=== PATIENT | female | born 1940 | race Caucasian/White ===

== ENCOUNTER 2020-09-21 13:43 | Outpatient (CLI) | payer MEDICARE ==
[2020-09-22 01:16] LABS: SARS-CoV-2 PCR by NAA Not Detected (NotDetected)
== END 2020-09-21 13:44 | disposition home or self-care (01) ==
LOC: LABBT 13:43
PROVIDERS: ATTEND Internal Medicine Cardiovascular Disease
DX: Z01.812 Encounter for preprocedural laboratory examination (principal); Z20.822 Contact with and (suspected) exposure to COVID-19
CPT/HCPCS: U0003; U0005; 87635

== ENCOUNTER 2020-09-24 06:17 | Inpatient (IN) | payer MEDICARE ==
[2020-09-24] MEDS ORDERED: Fentanyl 100 MCG/2 ML VIAL ONE (07:20)
[2020-09-24] MEDS ORDERED: PROPOFOL 0 ML ONE (08:13)
[2020-09-24] MEDS ORDERED: PROPOFOL 200 MG/20 ML VIAL ONE (10:24)
[2020-09-24] MEDS ORDERED: hydrALAZINE 25 MG TAB ONE (16:15)
[2020-09-24] MEDS: hydrALAZINE 25 MG TAB PO SCH ×2 (16:18→20:54)
[2020-09-24 16:46] LABS: #Basophils 0.1 thou/uL (0.0-0.2); #Eosinphils 0.3 thou/uL (0.0-0.7); #Lymphocytes 2.4 thou/uL (1.20-3.40); #Monocytes 0.6 thou/uL (0.11-0.59); #Neutrophils 3.9 thou/uL (1.40-6.50); %Basophils 1.1 % (0.0-1.0); %Eosinophils 4.5 % (0.0-10.0); %Lymphocytes 33.2 % (21.0-51.0); %Monocytes 7.5 % (0.0-10.0); %Neutrophils 53.7 % (42.0-75.0); Mean Corpuscular HGB CONC 31.2 g/dL (32.0-36.0); Mean Corpuscular Hemoglobin 29.7 pg (27.0-31.0); Mean Corpuscular Volume 95.2 fL (78.0-98.0); Mean Platelet Volume 7.8 fL (7.4-10.4); Platelet Count 178 thou/uL (130-400); RBC Distribution Width 14.2 % (11.5-14.5); Red Blood Cell (RBC) Count 5.07 mill/uL (4.20-5.40); White Blood Cell (WBC) Count 7.3 thou/uL (4.8-10.8)
[2020-09-24 17:03] LABS: Anion Gap 10 mmol/L (10-20); BUN (Urea Nitrogen) 13 mg/dL (9.8-20.1); Calc. Creatinine Clearance 0 mL/min (70-130); Calcium 8.7 mg/dL (7.8-10.44); Carbon Dioxide 28 mmol/L (23-31); Chloride 102 mmol/L (98-107); Glucose 145 mg/dL (83-110); Potassium 4.3 mmol/L (3.5-5.1); Sodium 136 mmol/L (136-145)
[2020-09-24 19:54] VITALS: BMI 19.4
[2020-09-24] MEDS: Enoxaparin Sodium 60 MG/0.6 ML SYRINGE SC SCH (20:54)
[2020-09-24] MEDS: Lisinopril 20 MG TAB PO SCH (20:54)
[2020-09-25] MEDS: Enoxaparin Sodium 60 MG/0.6 ML SYRINGE SC SCH ×2 (09:30→20:35)
[2020-09-25] MEDS: hydrALAZINE 25 MG TAB PO SCH ×3 (09:30→20:35)
[2020-09-25] MEDS: Lisinopril 20 MG TAB PO SCH ×2 (09:30→20:35)
[2020-09-25] MEDS: Amiodarone 200 MG TAB PO SCH (09:30)
[2020-09-26] MEDS: Amiodarone 200 MG TAB PO SCH (09:48)
[2020-09-26] MEDS: hydrALAZINE 25 MG TAB PO SCH ×3 (09:48→20:55)
[2020-09-26] MEDS: Enoxaparin Sodium 60 MG/0.6 ML SYRINGE SC SCH (09:49)
[2020-09-26] MEDS: Lisinopril 20 MG TAB PO SCH ×2 (09:49→20:55)
[2020-09-26] MEDS ORDERED: Amlodipine 5 MG TAB PO SCH (11:45)
[2020-09-27] MEDS ORDERED: CEFAZOLIN 2 GM in Premix Bag 1 BAG IVPB SCH (02:15)
[2020-09-27] MEDS ORDERED: Sodium Chloride 0.9% 1,000 ML IV SCH (06:00)
[2020-09-27] MEDS ORDERED: Fentanyl 100 MCG/2 ML VIAL ONE (06:37)
[2020-09-27] MEDS ORDERED: Midazolam HCl 2 mg/2 ml Vial ONE (06:37)
[2020-09-27] MEDS ORDERED: Gentamicin 80 MG/2 ML VIAL ONE (06:37)
[2020-09-27] MEDS ORDERED: CEFAZOLIN 1 GM VIAL ONE (06:37)
[2020-09-27] MEDS ORDERED: Lidocaine 1% (PF) 30 ML VIAL ONE (07:04)
[2020-09-27] MEDS ORDERED: Vancomycin HCl 500 MG VIAL ONE (07:30)
[2020-09-27] MEDS ORDERED: Acetaminophen/Codeine 30-300mg Tablet PO PRN ×2 (08:34)
[2020-09-27] MEDS ORDERED: Iopamidol 370 76% 50 ML VIAL FS ONE (08:48)
[2020-09-27] MEDS ORDERED: Amlodipine 5 MG TAB PO SCH (09:00)
[2020-09-27] MEDS: Amiodarone 200 MG TAB PO SCH (09:18)
[2020-09-27] MEDS: Lisinopril 20 MG TAB PO SCH ×2 (09:19→20:07)
[2020-09-27] MEDS: Cephalexin 250 MG CAP PO SCH ×3 (09:23→20:07)
[2020-09-28 05:21] LABS: Anion Gap 11 mmol/L (10-20); BUN (Urea Nitrogen) 10 mg/dL (9.8-20.1); Calc. Creatinine Clearance 47 mL/min (70-130); Calcium 9.1 mg/dL (7.8-10.44); Carbon Dioxide 24 mmol/L (23-31); Chloride 105 mmol/L (98-107); Glucose 85 mg/dL (83-110); Potassium 3.3 mmol/L (3.5-5.1); Sodium 137 mmol/L (136-145)
[2020-09-28] MEDS ORDERED: Potassium Chloride 20 MEQ TAB PO SCH (08:15)
[2020-09-28 09:00] VITALS: TEMP 98.2
[2020-09-28] MEDS: Cephalexin 250 MG CAP PO SCH (09:02)
[2020-09-28] MEDS: Lisinopril 20 MG TAB PO SCH (09:02)
[2020-09-28] MEDS: Amiodarone 200 MG TAB PO SCH (09:02)
[2020-09-28 11:12] VITALS: BP 160/82
[2020-09-30] MEDS ORDERED: Apixaban 5 MG TAB PO SCH (09:00)
== END 2020-09-28 11:30 | disposition home or self-care (01) | DRG 244 ==
LOC: CCL 06:17 → 2NO 10:47
PROVIDERS: ADMIT Internal Medicine Cardiovascular Disease; ATTEND Internal Medicine Cardiovascular Disease
PROC: B24BZZ4 Ultrasonography of Heart with Aorta, Transesophageal (ICD-10-PCS; principal; 2020-09-24)
PROC: 0JH606Z Insertion of Pacemaker, Dual Chamber into Chest Subcutaneous Tissue and Fascia, Open Approach (ICD-10-PCS; 2020-09-27)
PROC: 02HK3JZ Insertion of Pacemaker Lead into Right Ventricle, Percutaneous Approach (ICD-10-PCS; 2020-09-27)
PROC: 02H63JZ Insertion of Pacemaker Lead into Right Atrium, Percutaneous Approach (ICD-10-PCS; 2020-09-27)
DX: I48.19 Other persistent atrial fibrillation (principal); Z20.822 Contact with and (suspected) exposure to COVID-19; I44.2 Atrioventricular block, complete; I10 Essential (primary) hypertension; I87.2 Venous insufficiency (chronic) (peripheral); I08.3 Combined rheumatic disorders of mitral, aortic and tricuspid valves; H35.30 Unspecified macular degeneration; L40.9 Psoriasis, unspecified; R94.31 Abnormal electrocardiogram [ECG] [EKG]; I70.0 Atherosclerosis of aorta; Z82.49 Family history of ischemic heart disease and other diseases of the circulatory system; Z86.16 Personal history of COVID-19; Z87.891 Personal history of nicotine dependence; Z79.899 Other long term (current) drug therapy; Z79.01 Long term (current) use of anticoagulants; Z98.51 Tubal ligation status; Z98.42 Cataract extraction status, left eye; Z98.41 Cataract extraction status, right eye; Z83.3 Family history of diabetes mellitus
CPT/HCPCS: 33208; 36005; 36415; 71045; 75820; 80048; 85025; 87635; 92960; 93005; 93010; 93312; 93798; 99152; 99153; C1785; C1898; J0690; J1580; J1650; J2001; J2250; J2704; J3010; J3370; Q9967; U0003; U0005

== ENCOUNTER 2021-02-15 14:35 | Inpatient (IN) | payer OTHER, MEDICARE ==
[2021-02-15 14:53] LABS: #Eosinphils 0.1 thou/uL (0.0-0.7); #Lymphocytes 1.7 thou/uL (1.20-3.40); #Monocytes 0.5 thou/uL (0.11-0.59); #Neutrophils 5.3 thou/uL (1.40-6.50); %Basophils 0.4 % (0.0-1.0); %Eosinophils 1.9 % (0.0-10.0); %Monocytes 6.9 % (0.0-10.0); %Neutrophils 68.9 % (42.0-75.0); Hemoglobin 14.8 g/dL (12.0-16.0); Mean Corpuscular HGB CONC 34.1 g/dL (32.0-36.0); Mean Corpuscular Hemoglobin 34.3 pg (27.0-31.0); Mean Platelet Volume 7.4 fL (7.4-10.4); Platelet Count 197 thou/uL (130-400); RBC Distribution Width 13.2 % (11.5-14.5); Red Blood Cell (RBC) Count 4.31 mill/uL (4.20-5.40); White Blood Cell (WBC) Count 7.6 thou/uL (4.8-10.8)
[2021-02-15] MEDS ORDERED: Succinylcholine 200 MG/10 ml SYRINGE FS ONE (15:01)
[2021-02-15] MEDS ORDERED: TETANUS AND DIPHTHERIA TOX/PF 0.5 ML DISP.SYRIN ONE (15:01)
[2021-02-15] MEDS ORDERED: ceFAZolin 2 GM/DEX 5% 100 ML BAG ONE ×2 (15:07→15:11)
[2021-02-15] MEDS ORDERED: Boostrix 0.5 ML (Tdap) VIAL ONE (15:07)
[2021-02-15] MEDS ORDERED: Fentanyl 100 MCG/2 ML VIAL ONE (15:07)
[2021-02-15 15:16] LABS: ALT (SGPT) 62 U/L (8-55); AST (SGOT) 59 U/L (5-34); Albumin 3.7 g/dL (3.4-4.8); Alkaline Phosphatase 90 U/L (40-110); Anion Gap 13 mmol/L (10-20); BUN (Urea Nitrogen) 19 mg/dL (9.8-20.1); Bilirubin, Total 1.1 mg/dL (0.2-1.2); Calc. Creatinine Clearance 0 mL/min (70-130); Calcium 8.9 mg/dL (7.8-10.44); Carbon Dioxide 27 mmol/L (23-31); Chloride 97 mmol/L (98-107); Glucose 128 mg/dL (83-110); Lipase 18 U/L (8-78); Potassium 3.6 mmol/L (3.5-5.1); Protein, Total 6.7 g/dL (5.8-8.1); Sodium 133 mmol/L (136-145)
[2021-02-15] MEDS ORDERED: Atropine Sulfate 1 mg/10 ml Syringe ONE (15:20)
[2021-02-15] MEDS ORDERED: EPINEPHrine 1 MG/10 ML Abboject SYRINGE ONE ×2 (15:20→16:58)
[2021-02-15] MEDS ORDERED: Calcium Chloride 1 GM/10 ML Abboject SYRINGE ONE (15:20)
[2021-02-15] MEDS ORDERED: Sodium Bicarb 50 MEQ/50 ML Abboject 8.4% SYRINGE ONE ×2 (15:20→23:33)
[2021-02-15] MEDS ORDERED: Ondansetron PF 4 MG/2 ML Vial IVP PRN (15:53)
[2021-02-15] MEDS ORDERED: Dextrose 5% in Water 1,000 ML IV PRN (15:53)
[2021-02-15] MEDS ORDERED: Dextrose 50% Abboject 50 ML SYRINGE SLOW IVP PRN (15:53)
[2021-02-15] MEDS ORDERED: Ondansetron ODT 4 MG TAB PO PRN (15:53)
[2021-02-15] MEDS ORDERED: Ondansetron PF 4 MG/2 ML Vial ONE ×2 (15:56→17:12)
[2021-02-15] MEDS ORDERED: Sodium Chloride 0.9% 1,000 ML IV SCH (16:15)
[2021-02-15] MEDS ORDERED: Fentanyl 100 MCG/2 ML VIAL SLOW IVP SCH (16:15)
[2021-02-15] MEDS ORDERED: CEFAZOLIN 2 GM in Premix Bag 1 BAG IVPB SCH (16:15)
[2021-02-15] MEDS ORDERED: ADMIXTURE FEE IV SCH (16:30)
[2021-02-15] MEDS ORDERED: HUMAN PROTHROMBIN COMPLX IV SCH (16:30)
[2021-02-15] MEDS ORDERED: Norepinephrine 8 MG/0.9% NS 250 ML ONE ×3 (17:00→22:59)
[2021-02-15] MEDS ORDERED: Hydrocortisone Sod Succ/PF 100 mg/2 ml Vial ONE (17:12)
[2021-02-15 17:18] LABS: INR-International Normal Ratio 1.7; Prothrombin Time 19.8 sec (12.0-14.7)
[2021-02-15 17:19] LABS: PTT 29.8 sec (22.9-36.1)
[2021-02-15] MEDS ORDERED: Fentanyl CADD 100 ML IV SCH (18:45)
[2021-02-15 19:38] LABS: Lactic Acid 10.9 mmol/L (0.5-2.2)
[2021-02-15 19:44] LABS: Hemoglobin 10.1 g/dL (12.0-16.0); Mean Corpuscular Hemoglobin 33.5 pg (27.0-31.0); Mean Platelet Volume 7.3 fL (7.4-10.4); Platelet Count 139 thou/uL (130-400); Red Blood Cell (RBC) Count 3.02 mill/uL (4.20-5.40); White Blood Cell (WBC) Count 27.4 thou/uL (4.8-10.8)
[2021-02-15 19:50] LABS: Actual Bicarbonate (HCO3a) 9.8 mEq/L (22-28); Analyzer IN Cardio ER; Base Excess (BEa) -19.3 mEq/L (-2.0 to +3.0); CO2 Tension 36.2 mmHg (35.0-45.0); Calcium, Ionized (arterial) 1.28 mmol/L (1.12-1.30); Carboxyhemoglobin (COHb) 0.2 gm% (0.0-3.0); Hemoglobin (Hb) 8.7 g/dL (12.0-16.0); O2 Tension (PaO2), arterial 296.1 mmHg (> 70.0); Potassium - ABG Lab 4.01 mmol/L (3.70-5.30)
[2021-02-15 20:00] LABS: Band 43 % (5-11); Lymphocytes 9 % (21-51); MDiff Complete? YES; Macrocytosis SLIGHT = 6-15 cells (100X) (0-5/hpf); Metamyelocyte 3 % (0-0); Monocytes 5 % (0-10); Myelocyte 2 % (0-0); Neutrophil 37 % (42-75); Platelet Morphology Comment Appears Adequate; Polychromasia SLIGHT = 2-3 cells (100X) (0-2/hpf); Reactive Lymphocytes 1 % (0-10); Reflex for Review?? NO
[2021-02-15 20:27] LABS: SARS-CoV-2 NAA Rapid Test Not Detected (NotDetected)
[2021-02-15 20:38] LABS: pH, Arterial 7.05 (7.35-7.45)
[2021-02-15 20:39] LABS: Puncture Site ALINE
[2021-02-15 20:52] LABS: Albumin 2.8 g/dL (3.4-4.8)
[2021-02-15 20:54] LABS: Calcium 8.9 mg/dL (7.8-10.44); Sodium 133 mmol/L (136-145)
[2021-02-15 20:55] LABS: Globulin 1.2 g/dL (2.4-3.5); Glucose 282 mg/dL (83-110)
[2021-02-15 20:56] LABS: Anion Gap 20 mmol/L (10-20); Chloride 109 mmol/L (98-107)
[2021-02-15 20:57] LABS: Bilirubin, Total 0.8 mg/dL (0.2-1.2)
[2021-02-15 20:58] LABS: Alkaline Phosphatase 78 U/L (40-110); Calc. Creatinine Clearance 29 mL/min (70-130)
[2021-02-15 20:59] LABS: BUN (Urea Nitrogen) 19 mg/dL (9.8-20.1)
[2021-02-15 21:00] LABS: AST (SGOT) 366 U/L (5-34)
[2021-02-15] MEDS ORDERED: Famotidine 20 MG TAB PO SCH (21:00)
[2021-02-15 21:01] LABS: ALT (SGPT) 276 U/L (8-55)
[2021-02-15 21:04] LABS: Carbon Dioxide 8 mmol/L (23-31)
[2021-02-15 21:18] LABS: CKMB 4.9 ng/mL (0-6.6)
[2021-02-15] MEDS ORDERED: EPINEPHrine 4 MG in Dextrose 5% in Water 250 ML IV SCH (22:00)
[2021-02-15 23:16] LABS: Actual Bicarbonate (HCO3a) 8.6 mEq/L (22-28); Base Excess (BEa) -19.5 mEq/L (-2.0 to +3.0); CO2 Tension 28.2 mmHg (35.0-45.0); Calcium, Ionized (arterial) 1.21 mmol/L (1.12-1.30); Carboxyhemoglobin (COHb) 0.3 gm% (0.0-3.0); Hemoglobin (Hb) 10.1 g/dL (12.0-16.0); O2 Tension (PaO2), arterial 120.8 mmHg (> 70.0); Potassium - ABG Lab 3.83 mmol/L (3.70-5.30)
[2021-02-15 23:17] LABS: Puncture Site LINE
[2021-02-15] MEDS: Hydrocortisone Sod Succ/PF 100 mg/2 ml Vial IVP SCH (23:17)
[2021-02-15] MEDS ORDERED: Sodium Bicarb 50 MEQ/50 ML Abboject 8.4% SYRINGE IVP SCH (23:30)
[2021-02-15] MEDS: Sodium Bicarb 50 MEQ/50 ML Abboject 8.4% SYRINGE ONE (23:38)
[2021-02-15] MEDS ORDERED: Sodium Bicarbonate 150 MEQ in Dextrose 5% in Water 1,000 ML IV SCH (23:59)
[2021-02-16 00:55] VITALS: BMI 20.8
[2021-02-16] MEDS ORDERED: Sodium Chloride 0.9% 250 ML IVPB SCH ×2 (01:15→01:30)
[2021-02-16] MEDS ORDERED: DOPamine 400 MG/D5W 250 ML 250 ML ONE (02:24)
[2021-02-16] MEDS ORDERED: Sodium Bicarb 50 MEQ/50 ML Abboject 8.4% SYRINGE ONE ×2 (02:40→02:46)
[2021-02-16] MEDS ORDERED: Calcium Chloride 1 GM/10 ML Abboject SYRINGE ONE (03:00)
[2021-02-16] MEDS: DOPamine 400 MG/D5W 250 ML 250 ML IVPB SCH ×2 (03:00→07:24)
[2021-02-16] MEDS: Hydrocortisone Sod Succ/PF 100 mg/2 ml Vial IVP SCH (03:04)
[2021-02-16 03:08] LABS: Actual Bicarbonate (HCO3a) 18.1 mEq/L (22-28); Analyzer IN Cardio OR; Base Excess (BEa) -6.9 mEq/L (-2.0 to +3.0); CO2 Tension 33.6 mmHg (35.0-45.0); Calcium, Ionized (arterial) 2.63 mmol/L (1.12-1.30); Carboxyhemoglobin (COHb) 0.9 gm% (0.0-3.0); O2 Tension (PaO2), arterial 100.1 mmHg (> 70.0); Potassium - ABG Lab 2.73 mmol/L (3.70-5.30); pH, Arterial 7.35 (7.35-7.45)
[2021-02-16 03:12] LABS: Puncture Site LINE
[2021-02-16 03:30] LABS: Hemoglobin 6.8 g/dL (12.0-16.0); Mean Corpuscular HGB CONC 33.7 g/dL (32.0-36.0); Mean Corpuscular Hemoglobin 32.2 pg (27.0-31.0); Mean Corpuscular Volume 95.5 fL (78.0-98.0); RBC Distribution Width 15.7 % (11.5-14.5); Red Blood Cell (RBC) Count 2.11 mill/uL (4.20-5.40); White Blood Cell (WBC) Count 19.8 thou/uL (4.8-10.8)
[2021-02-16] MEDS ORDERED: Potassium Chloride 40 MEQ in Premix Bag 1 BAG IVPB SCH (03:30)
[2021-02-16 03:38] LABS: Albumin 1.6 g/dL (3.4-4.8); Lactic Acid 21.5 mmol/L (0.5-2.2)
[2021-02-16 03:39] LABS: Calcium 7.3 mg/dL (7.8-10.44); Chloride 104 mmol/L (98-107); Sodium 147 mmol/L (136-145)
[2021-02-16 03:40] LABS: Protein, Total 2.6 g/dL (5.8-8.1)
[2021-02-16 03:41] LABS: Anion Gap 29 mmol/L (10-20); Carbon Dioxide 17 mmol/L (23-31)
[2021-02-16 03:43] LABS: Alkaline Phosphatase 71 U/L (40-110)
[2021-02-16 03:44] LABS: BUN (Urea Nitrogen) 21 mg/dL (9.8-20.1); Calc. Creatinine Clearance 27 mL/min (70-130)
[2021-02-16 03:45] LABS: AST (SGOT) 1428 U/L (5-34)
[2021-02-16 03:46] LABS: ALT (SGPT) 1296 U/L (8-55); Magnesium 1.8 mg/dL (1.6-2.6)
[2021-02-16 03:47] LABS: Glucose 188 mg/dL (83-110); Potassium 2.9 mmol/L (3.5-5.1)
[2021-02-16 03:57] LABS: Troponin I 0.531 ng/mL (< 0.028)
[2021-02-16] MEDS ORDERED: Magnesium 2 GM/50 ML 2 GM in Premix Bag 1 BAG IVPB SCH (04:15)
[2021-02-16 04:27] LABS: Band 22 % (5-11); Eosinophils 1 % (0-10); Lymphocytes 13 % (21-51); MDiff Complete? YES; Mean Platelet Volume 7.3 fL (7.4-10.4); Metamyelocyte 2 % (0-0); Monocytes 5 % (0-10); Myelocyte 1 % (0-0); Neutrophil 55 % (42-75); Platelet Count 61 thou/uL (130-400); Platelet Morphology Comment Appears Decreased
[2021-02-16 05:07] VITALS: TEMP 97.5
[2021-02-16] MEDS: Norepinephrine 8 MG/0.9% NS 250 ML IVPB SCH ×2 (06:37→07:24)
[2021-02-16 07:39] LABS: Actual Bicarbonate (HCO3a) 8.4 mEq/L (22-28); Base Excess (BEa) -19.1 mEq/L (-2.0 to +3.0); Calcium, Ionized (arterial) 1.14 mmol/L (1.12-1.30); Carboxyhemoglobin (COHb) 0.3 gm% (0.0-3.0); Hemoglobin (Hb) 9.2 g/dL (12.0-16.0); Potassium - ABG Lab 2.73 mmol/L (3.70-5.30)
[2021-02-16 07:41] LABS: CO2 Tension 25.4 mmHg (35.0-45.0); Puncture Site Arterial Line; pH, Arterial 7.14 (7.35-7.45)
[2021-02-16] MEDS ORDERED: Insulin Regular 300 UNITS/3 ML VIAL SC PRN (07:41)
[2021-02-16] MEDS ORDERED: Dextrose 50% Abboject 50 ML SYRINGE SLOW IVP PRN (07:41)
[2021-02-16] MEDS ORDERED: Dextrose 5% in Water 1,000 ML IV PRN (07:41)
[2021-02-16] MEDS ORDERED: Sodium Chloride 0.9% (PF) 10 ML VIAL FS PRN (07:45)
[2021-02-16 07:46] VITALS: BP 92/50
[2021-02-16] MEDS ORDERED: Sodium Bicarbonate 150 MEQ in Dextrose 5% in Water 1,000 ML IV SCH (08:00)
[2021-02-16 08:01] LABS: Hemoglobin 8.6 g/dL (12.0-16.0); Mean Corpuscular HGB CONC 33.4 g/dL (32.0-36.0); Mean Corpuscular Hemoglobin 31.7 pg (27.0-31.0); Mean Corpuscular Volume 94.9 fL (78.0-98.0); Mean Platelet Volume 8.1 fL (7.4-10.4); Platelet Count 39 thou/uL (130-400); RBC Distribution Width 15.3 % (11.5-14.5); Red Blood Cell (RBC) Count 2.71 mill/uL (4.20-5.40); White Blood Cell (WBC) Count 15.8 thou/uL (4.8-10.8)
[2021-02-16 08:24] LABS: Anion Gap 32 mmol/L (10-20); BUN (Urea Nitrogen) 19 mg/dL (9.8-20.1); Calc. Creatinine Clearance 27 mL/min (70-130); Calcium 7.9 mg/dL (7.8-10.44); Chloride 106 mmol/L (98-107); Glucose 251 mg/dL (83-110); Magnesium 2.9 mg/dL (1.6-2.6); Phosphorus 4.3 mg/dL (2.3-4.7); Sodium 143 mmol/L (136-145)
[2021-02-16 08:43] LABS: Band 29 % (5-11); Eosinophils 1 % (0-10); Lymphocytes 9 % (21-51); MDiff Complete? YES; Metamyelocyte 2 % (0-0); Monocytes 4 % (0-10); Myelocyte 2 % (0-0); Neutrophil 53 % (42-75); Nucleated RBC 2 % (0); Platelet Morphology Comment Appears Decreased; Polychromasia SLIGHT = 2-3 cells (100X) (0-2/hpf); Vacuoles SLIGHT
[2021-02-16 08:57] LABS: Fibrinogen 26 mg/dL (253-463); PTT 241.7 sec (22.9-36.1); Prothrombin Time Greater than 150.0 sec (12.0-14.7)
[2021-02-16] MEDS ORDERED: Famotidine 20 MG TAB PO SCH (09:00)
[2021-02-16] MEDS ORDERED: Pantoprazole 40 MG VIAL IVP SCH (09:00)
[2021-02-16] MEDS ORDERED: Amiodarone 200 MG TAB PO SCH (09:00)
[2021-02-16 09:04] LABS: Carbon Dioxide 8 mmol/L (23-31); Potassium 2.7 mmol/L (3.5-5.1)
== END 2021-02-16 09:15 | disposition expired | DRG 963 ==
LOC: ERS 14:35 → CCU 15:57
PROVIDERS: ADMIT Surgery; ATTEND Surgery
PROC: 3E033XZ Introduction of Vasopressor into Peripheral Vein, Percutaneous Approach (ICD-10-PCS; principal; 2021-02-15)
PROC: 02HV33Z Insertion of Infusion Device into Superior Vena Cava, Percutaneous Approach (ICD-10-PCS; 2021-02-15)
PROC: 5A12012 Performance of Cardiac Output, Single, Manual (ICD-10-PCS; 2021-02-15)
PROC: 5A1935Z Respiratory Ventilation, Less than 24 Consecutive Hours (ICD-10-PCS; 2021-02-15)
PROC: 0BH18EZ Insertion of Endotracheal Airway into Trachea, Via Natural or Artificial Opening Endoscopic (ICD-10-PCS; 2021-02-15)
DX: S06.6X0A Traumatic subarachnoid hemorrhage without loss of consciousness, initial encounter (principal); J96.00 Acute respiratory failure, unspecified whether with hypoxia or hypercapnia; S32.592A Other specified fracture of left pubis, initial encounter for closed fracture; I21.4 Non-ST elevation (NSTEMI) myocardial infarction; K72.00 Acute and subacute hepatic failure without coma; S12.190A Other displaced fracture of second cervical vertebra, initial encounter for closed fracture; S32.058A Other fracture of fifth lumbar vertebra, initial encounter for closed fracture; S22.028A Other fracture of second thoracic vertebra, initial encounter for closed fracture; S22.038A Other fracture of third thoracic vertebra, initial encounter for closed fracture; S22.048A Other fracture of fourth thoracic vertebra, initial encounter for closed fracture; S22.058A Other fracture of T5-T6 vertebra, initial encounter for closed fracture; D62 Acute posthemorrhagic anemia; E87.2 Acidosis; N17.9 Acute kidney failure, unspecified; I48.91 Unspecified atrial fibrillation; S06.5X0A Traumatic subdural hemorrhage without loss of consciousness, initial encounter; S02.118A Other fracture of occiput, unspecified side, initial encounter for closed fracture; I10 Essential (primary) hypertension; I46.9 Cardiac arrest, cause unspecified; R57.0 Cardiogenic shock; V89.2XXA Person injured in unspecified motor-vehicle accident, traffic, initial encounter; Y92.9 Unspecified place or not applicable; Z30.2 Encounter for sterilization; Z95.0 Presence of cardiac pacemaker; Z98.51 Tubal ligation status; Z87.891 Personal history of nicotine dependence
CPT/HCPCS: 36415; 36416; 36430; 70450; 70486; 71045; 71260; 72125; 74019; 74177; 80053; 82553; 82805; 83605; 83690; 83735; 84100; 84484; 85025; 85384; 85610; 85730; 86850; 86900; 86901; 90714; 90715; 93005; 94003; 94640; G0390; J0171; J0461; J1265; J1720; J2405; J3010; J3475; J3480; J7030; J7050; J7070; J7168; J7620; P9016; P9045; U0002